=== PATIENT | female | born 1990 | race Two or more races ===

== ENCOUNTER 2023-07-25 17:19 | Emergency (ER) | payer OTHER, SELFPAY ==
[2023-07-25 17:35] VITALS: BP 123/90; PULSE 81; RESP 20; TEMP 36.9; O2SAT 97; BMI 29.2
--- NOTE | 2023-07-25 17:48 | ED.SKABFB1 ---
HPI - Skin/Abscess/Foreign Bdy General Chief complaint: Skin/Abscess/Foreign Body Stated complaint: RASH Time Seen by Provider: 07/25/23 17:34 Source: patient Mode of arrival: walk-in Limitations: no limitations History of Present Illness HPI narrative: 33-year-old female presents for rash. It's mostly on her right leg but to a lesser degree on the left leg and the lower abdomen. She's had it for a few weeks and finished a course of prednisone. She was also treated for scabies and flea bites but it didn't get better. it is continuous. No new products or new medications prior to the rash developing. Related Data Previous Rx's Medication Instructions Recorded hydroxyzine HCl 25 mg tablet 25 mg PO Q8H PRN itching #20 tabs 07/25/23 prednisone 10 mg tablet See Rx Instructions .Route 07/25/23 .COMPLEX #30 tabs Allergies Allergy/AdvReac Type Severity Reaction Status Date / Time No Known Drug Allergies Allergy Verified 07/25/23 17:35 Review of Systems ROS Narrative A ten point review of systems is negative except as noted above. Exam Narrative Exam Narrative: Nurses note and vital signs reviewed and patient is not hypoxic. General: The patient appears well and in no apparent distress. Patient is resting comfortably on cart. Skin: Warm, dry, no pallor noted. There is erythematous scattered rash present primarily on her right leg but to a lesser degree the left leg in the lower abdomen. No pustules or blisters are present. Head: Normocephalic, atraumatic Eye: Normal conjunctiva, no drainage Ears, Nose, Mouth, and Throat: oral mucosa is moist. Nares patent. Cardiovascular: Regular Rate and Rhythm Respiratory: Patient is in no distress, no accessory muscle use, lungs are clear to auscultation, no wheezing, rales or rhonchi Back: non-tender GI: soft and nontender Musculoskeletal: The patient has no evidence of calf tenderness, no pitting edema, symmetrical pulses noted bilaterally Neurological: A&O, normal speech Psychiatric: Cooperative Constitutional Vital Signs, click to edit/add: Last Vital Signs Temp 98.5 F 07/25/23 17:35 Pulse 81 07/25/23 17:35 Resp 20 07/25/23 17:35 BP 123/90 07/25/23 17:35 Pulse Ox 97 07/25/23 17:35 O2 Del Method Room Air 07/25/23 17:35 Course Vital Signs Vital signs: Vital Signs Temperature 98.5 F 07/25/23 17:35 Pulse Rate 81 07/25/23 17:35 Respiratory Rate 20 07/25/23 17:35 Blood Pressure 123/90 07/25/23 17:35 Pulse Oximetry 97 07/25/23 17:35 Oxygen Delivery Method Room Air 07/25/23 17:35 Temperature 98.5 F 07/25/23 17:35 Pulse Rate 81 07/25/23 17:35 Respiratory Rate 20 07/25/23 17:35 Blood Pressure 123/90 07/25/23 17:35 Pulse Oximetry 97 07/25/23 17:35 Oxygen Delivery Method Room Air 07/25/23 17:35 MDM - Skin/Abscess/Foreign Bdy MDM Narrative Medical decision making narrative: rashes of uncertain etiology and she is prescribed Solu-Medrol and prescribed Atarax. She was given IM Solu-Medrol. Treatment diagnosis and follow-up were discussed with the patient. Differential Diagnosis Differential diagnosis: Likely viral exanthem, urticaria, allergic reaction to drug, cellulitis, insect bites and contact dermatitis Discharge Plan Discharge Chief Complaint: Skin/Abscess/Foreign Body Clinical Impression: Rash Patient Disposition: Home, Self-Care Time of Disposition Decision: 17:46 Condition: Good Mode of Transportation: Private Vehicle Prescriptions / Home Meds: New prednisone 10 mg tablet See Rx Instructions .ROUTE .COMPLEX Qty: 30 0RF Rx Instructions: 4 by mouth daily for three days then 3 by mouth daily for three days then 2 by mouth daily for three days then 1 by mouth daily for three days hydroxyzine HCl 25 mg tablet 25 mg PO Q8H PRN (Reason: itching) Qty: 20 0RF Instructions: Acute Rash (ED) Stand Alone Forms: Portal Instructions Referrals: Physician,Non-Staff, MD [Primary Care Provider] - 1 week
[2023-07-25] MEDS: METHYLPREDNISOLONE SOD SUCC PF 125 MG/2 ML VIAL IM (17:50)
== END 2023-07-25 18:02 | disposition home or self-care (01) ==
PROVIDERS: Emergency Provider Emergency Medicine
DX: R21 Rash and other nonspecific skin eruption (principal)
CPT/HCPCS: 96372; 99284; J2930

== ENCOUNTER 2025-02-02 01:23 | Emergency (ER) | payer OTHER, SELFPAY ==
[2025-02-02 01:25] VITALS: BMI 25.7
--- NOTE | 2025-02-02 01:30 | ED_ITS ---
HPI HPI - Overdose General Chief Complaint: Overdose Stated Complaint: other Time Seen by Provider: 02/02/25 01:30 History of Present Illness HPI Narrative: cc - overdose Patient was found unresponsive outside of the [facility] in [place]. EMS was called to the scene but apparently no one claim to know this lady known offered any kind of story. She was just outside of the bar, according to EMS. They administered 3 doses of Narcan and were bagging her at 1 point. They said that the third dose caused her to resuscitate. Her blood sugar was 368. Despite having overdose and requiring Narcan for resuscitation, EMS told us that the patient wanted to go to [place] rather than [place]. It is not clear when this occurred in the process of resuscitating this patient's overdose, but they drove from [place] all the way to [place] to bring this patient in for evaluation. On arrival the patient not only refused to give any of her information she pulled out her IV and refused any treatment or interaction. We were eventually able to get her name, her address and phone number. She was able to contact her boyfriend through Facebook and we were able to make arrangements for her to come and get picked up. She vehemently denied using any drugs and said that she was a chronic alcoholic . She was awake alert and oriented x 3 with understanding of where she was and refused any additional intervention. I did not even get to examine her. Related Data Previous Rx's ?Medication ?Instructions ?Recorded hydroxyzine HCl 25 mg tablet 25 mg PO Q8H PRN itching #20 tabs 07/25/23 prednisone 10 mg tablet See Rx Instructions .Route 1 09/25/22 .COMPLEX #30 tabs Allergies Allergy/AdvReac Type Severity Reaction Status Date / Time No Known Drug Allergies Allergy Verified 07/25/23 17:35 MDM - Overdose MDM Narrative Medical decision making narrative: Patient was found unresponsive outside of the [facility] in [place]. EMS was called to the scene but apparently no one claim to know this lady known offered any kind of story. She was just outside of the bar, according to EMS. They administered 3 doses of Narcan and were bagging her at 1 point. They said that the third dose caused her to resuscitate. Her blood sugar was 368. Desp ite having overdose and requiring Narcan for resuscitation, EMS told us that the patient wanted to go to [place] rather than [place]. It is not clear when this occurred in the process of resuscitating this patient's overdose, but they drove from [place] all the way to [place] to bring this patient in for evaluation. On arrival the patient not only refused to give any of her information she pul led out her IV and refused any treatment or interaction. We were eventually able to get her name, her address and phone number. She was able to contact her boyfriend through Facebook and we were able to make arrangements for her to come and get picked up. She vehemently denied using any drugs and said that she was a chronic alcoholic . She was awake alert and oriented x 3 with understanding of where she was and refused any additional intervention. I did not even get to examine her. Discharge Plan Discharge Stand Alone Forms: Portal Instructions Chief Complaint: Overdose Clinical Impression: Refusal of care by patient Patient Disposition: Left Against Medical Advice Time of Disposition Decision: 01:32 Prescriptions / Home Meds: No Action prednisone 10 mg tablet See Rx Instructions .ROUTE .COMPLEX Qty: 30 0RF Rx Instructions: 4 by mouth daily for three days then 3 by mouth daily for three days then 2 by mouth daily for three days then 1 by mouth daily for three days hydroxyzine HCl 25 mg tablet 25 mg PO Q8H PRN (Reason: itching) Qty: 20 0RF Print Language: Iranian Instructions: Against Medical Advice (ED) Referrals: Physician,Non-Staff, MD [Primary Care Provider] - 1 week
--- OUTSIDE RECORDS SUMMARY | 2025-02-02 01:30 | XMS_ITS | CCD ---
Author Organization [facility] Care Team Providers Care Theater Teacher Name Role Phone LILI CEJA Referring Unavailable VENUS WRIGHT Attending Unavailable Unavailable Primary Care Provider Unavailbert e Unavailable Primary Care Provider LILI Lindsay Attending Unavailable LILI CEJA Referring Unavailable Medications Current Medications Medication Drug Class(es) Dates Sig (Normalized) Sig (Original) medical marijuana (4 sources) medical marijuan a Inhale. Active medical marijuan a Inhale. 0 Active metroNIDAZOLE 500 mg oral tablet (2 sources) Nitroimidazole Antimicrobial Start: 11-15-2024 End: 11-22-2024 take 1 tablet by mouth three times daily metroNIDAZOLE (FLAGYL) 500 mg tablet Take 1 tablet (500 mg total) by mouth 3 (three) times a day for 7 days. 21 tablet 11/15/2024 11/22/2024 Active Start: 09-06-2023 End: 09-13-2023 take 1 tablet by mouth in the morning, then take 1 tablet by mouth at bedtime metroNIDAZOLE (FlagyL) 500 mg tablet Indications: Bacterial vaginosis Take 1 tablet (500 mg total) by mouth in the morning and 1 tablet (500 mg total) before bedtime. Do all this for 7 days. 14 tablet 0 09/06/2023 09/13/2023 Active Problems Active Problems Problem Classification Problem Date Documented Date Episodic/Chronic Immunizations and screening for infectious disease (5 sources) Encounter for screening for infections with a predominantly sexual mode of transmission; Translations: [Patient encounter status] Onset: 09-05-2023 09-05-2023 Episodic Inflammatory diseases of female pelvic organs (4 sources) Bacterial vaginosis; Translations: [Acute vaginitis] Onset: 11-12-2024 09-06-2023 Episodic Other screening for suspected conditions (not mental disorders or infectious disease) (1 source) Encounter for screening for malignant neoplasm of vagina; Translations: [Encounter for screening for malignant neoplasm of vagina] Onset: 09-05-2023 Episodic Unclassified (1 source) Annual Exam Onset: 11-12-2024 Past or Other Problems Problem Classification Problem Date Documented Da te Episodic/Chronic Mood disorders (4 sources) Mood disorders Onset: 09-05-2023 Resolved: 11-12-2024 09-05-2023 Unclassified (4 sources) Onset: 09-05-2023 09-05-2023 Results Test Name Value Interpretation Reference Range Facil ity CHLAMYDIA/GC BY PCRon 2024 CHLAMYDIA/GC BY PCR SPECIMEN SOURCE CERVIX CHLAMYDIA DNA(PCR) Negative (qualifier value) Chlamydia trachomatis not detected by nucleic acid amplification. This does not exclude the possibility of infection because results are dependent on adequate specimen collection. GONORRHOEAE DNA(PCR) Negative (qualifier value) Neisseria gonorrhoeae not detected by nucleic acid amplification. This does not exclude the possibility of infection because results are dependent on adequate specimen collection. Normal [facility] Comment on above: Performed By: #### C GS #### [facility] ([id number]) [address] [place] [address], [address] [place] [address] VAGINITIS PANEL PCRon 2024 VAGINITIS PANEL PCR BACT. VAGINOSIS DNA Detected (qualifier value) Qualitative results are reported based on detection and quantitation of targeted organism markers which include: Lactobacillus spp. (L. crispatus and L. jensenii), Gardnerella vaginalis, Atopobium vaginae, Bacterial Vaginosis Associated Bacteria-2 (BVAB-2) and Megasphaera-1 SINDHU SPECIES DNA Not detected (qualifier value) Sindhu species not detected include: C. albicans, C. tropicalis, C. parapsilosis or C. dubliniensis SINDHU KRUSEI DNA Not detected (qualifier value) No Sindhu krusei detected SINDHU GLABRATA DNA Not detected (qualifier value) No Sindhu glabrata detected TRICHOMONAS VAG DNA Not detected (qualifier value) No Trichomonas vaginalis detected NOTE BD MAX Vaginal Panel has not been evaluated for patients under 18 years old. Results for these patients should be reviewed and assessed in accordance with clinical presentation to determine patient diagnosis. [facility] Comment on above: Performed By: #### V PPCR #### [facility] ([id number]) [address] [place] [address], [address] [place] [address] CHLAMYDIA/GC PCR, FLon 09-05 CHLAMYDIA/GC PCR, FL SPECIMEN SOURCE ThinPrep CHLAMYDIA DNA(PCR) Negative (qualifier value) Chlamydia trachomatis not detected by nucleic acid amplification. This does not exclude the possibility of infection because results are dependent on adequate specimen collection. GONORRHOEAE DNA(PCR) Negative (qualifier value) Neisseria gonorrhoeae not detected by nucleic acid amplification. This does not exclude the possibility of infection because results are dependent on adequate specimen collection. Normal [facility] Comment on above: Performed By: #### C GT #### [facility] ([id number]) [address] [place] [address], [place] [address] [facility] ([id number]) [address] [place] [address], [address] [place] [address] Cytologyon 09-05-2023 Cytology Normal [facility] Comment on above: Result Comment: [facility] [address] [place] [address] Gynecologic Cytology Consultation Patient Name:VENUS ALVES:1990 (Age: 33)Gender:FTaken:4Reported:09/12/2023hysician(s):Lili Ceja M.D. ([phone])Copy To: Rec. #:[id number]: #[id number] Final Cytologic Interpretation ThinPrep Pap Test (Cervical): Satisfactory for evaluation. A transformation zone component is present. NEGATIVE FOR INTRAEPITHELIAL LESION OR MALIGNANCY. wernerja/09/12/2023 [facility] [address] [place] [address], License number: [id number]. Electronically Signed Out By GALA Edouard(ASCP) Date of Last Menstrual Period: (None Given) Other Clinical Conditions: Z01.419 Clinical Molecular Geneticist exam wo/abn findings Z12.72 Screeing for malignant neoplasm of vagina Z11.3 Encntr screen for infections w sexl mode of transmiss Source of Specimen ThinPrep Pap Test (Cervical) Thin Prep Pap (INTERNAL COMBUSTION ENGINE ASSEMBLER) Fee Code(s): G0145 HIGH RISK HPV W/GENOon 09-05 HPV 31+33+35+39+45+51 +52+56+58+59+66+6 8 DNA DAYSI+probe Ql (Cvx) HPV SPECIMEN TYPE ThinPrep HPV 16 Negative (qualifier value) HPV 18 Negative (qualifier value) OTHER HIGH RISK HPV Negative (qualifier value) HPV types 31,33,35,39,45,52,56,5 8,59,66 and 68 DNA were undetectable. Normal [facility] Comment on above: Performed By: #### 7 1431-1 #### [facility] ([id number]) [address] [place] [address], [address] [place] [place], [place] [id number] [place] [address] LAB ([id number]) [address] [facility], [address] [place] [address] Vital Signs Date Time Vital Sign Value Performing Clinician Faci lity 11-12-2024 09:42-0400 Body height 162.6 cm Lili Ceja MD Work Phone: [facility] 11-12-2024 09:42-0400 Body mass index (BMI) [Ratio] 25.71 kg/m2 Lili Ceja MD Work Phone: [facility] 11-12-2024 09:42-0400 Body weight 67.95 kg Lili Ceja MD Work Phone: [facility] 11-12-2024 09:42-0400 Diastolic blood pressure 84 mm[Hg] Lili Ceja MD Work Phone: [facility] 11-12-2024 09:42-0400 Systolic blood pressure 132 mm[Hg] Lili Ceja MD Work Phone: [facility] 09-05-2023 13:59-0500 Body weight 80.56 kg Lili Ceja MD Work Phone: [facility] 09-05-2023 13:59-0500 Diastolic blood pressure 60 mm[Hg] Lili Ceja MD Work Phone: [facility] 09-05-2023 13:59-0500 Systolic blood pressure 104 mm[Hg] Lili Ceja MD Work Phone: [facility] Encounters Encounter Date Encounter Type Care Provider Facility Start: 11-15-2024 End: 11-15-2024 Orders Only Lili Ceja MD Work Phone: [facility] Start: 11-12-2024 End: 11-12-2024 ambulatory [facility] Start: 11-12-2024 End: 11-12-2024 Patient encounter status Lili Ceja MD Work Phone: [facility] Work Phone: Start: 11-12-2024 End: 11-12-2024 Periodic preventive med est patient 18-39 yrs Lili Ceja MD Work Phone: [facility] Comment on above: Encounter for gyneco logical examination without abnormal finding (Primary Dx); Screening for STD (sexually transmitted disease); Acute vaginitis Start: 11-12-2024 End: 11-12-2024 ambulatory [facility] Start: 11-12-2024 Encounter for gynecological examination (general) (routine) without abnormal findings [facility] Start: 09-25-2023 End: 09-25-2023 ambulatory VENUS WRIGHT Not Available Start: 09-06-2023 Telephone encounter Sofía martin APRN-CNM Work Phone: [facility] Start: 09-05-2023 End: 09-05-2023 Initial preventive medicine new pt age 18-39yrs Lili Ceja MD Work Phone: [facility] Comment on above: Encounter for gyneco logical examination without abnormal finding (Primary Dx); Smear, vaginal, as part of routine gynecological examination; Screening for STD (sexually transmitted disease) Start: 09-05-2023 End: 09-05-2023 Patient encounter status Lili Ceja MD Work Phone: [facility] Work Phone: Start: 09-05-2023 End: 09-05-2023 ambulatory [facility] Start: 09-05-2023 Encounter for gynecological examination (general) (routine) without abnormal findings [facility] Procedures Date Procedure Procedure Detail Performing Clinician Start: 11-12-2024 Adult depression scr eening assessment Lili Ceja MD Work Phone: Start: 09-05-2023 Adult depression scr eening assessment Lili Ceja MD Work Phone: Start: 09-05-2023 Microscopic observat ion [Identifier] in Cervix by Cyto stain Lili Ceja MD Work Phone: Start: 04-05-2012 Microscopic observat ion [Identifier] in Cervix by Cyto stain Lili Ceja MD Work Phone: Plan of Treatment Date Care Activity Detail Author Start: 09-05-2026 Screening for malign ant neoplasm of cervix Pap Smear [facility] Start: 05-15-2026 Tobacco Counseling Tobacco Counselin g [facility] Start: 11-12-2025 Adult BMI Screening Adult BMI Screen ing [facility] Start: 11-12-2025 Depression Screening Depression Scre ening [facility] Start: 11-12-2025 Tobacco Screening Tobacco Screening [facility] Start: 11-12-2024 End: 11-12-2025 Chlamydia/GC by PCR Bere Swab Chlamydia/GC by PCR Bere Swab Microbiology Routine Screening for STD (sexually transmitted disease) Expected: 11/12/2024 (Approximate), Expires: [facility]12[facility]25 [facility] Work Phone: Comment on above: Expected: 11/12/2024 (Approximate), Expires: 11/12/2025 Start: 11-12-2024 End: 11-12-2025 Vaginitis Panel PCR Vaginitis Panel PCR Microbiology Routine Acute vaginitis Expected: 11/12/2024 (Approximate), Expires: 11/12/2025 [facility] Comment on above: Expected: 11/12/2024 (Approximate), Expires: 11/12/2025 Start: 09-05-2024 Adult BMI Follow Up Plan Adult BMI F ollow Up Plan [facility] Start: 09-05-2024 Depression Screening Depression Scre ening [facility] Start: 09-05-2024 Tobacco Screening Tobacco Screening [facility] Start: 04-21-2024 Influenza vaccination Influenza Vacc ine [facility] Start: 04-21-2023 Influenza vaccination Influenza Vacc ine [facility] Start: 04-05-2015 Screening for malign ant neoplasm of cervix Pap Smear [facility] Start: 2009 DTaP,Tdap and Td Vaccines (1 - Tdap) DTaP,Tdap and Td Vaccines (1 - Tdap) [facility] Start: 2008 Adult BMI Screening Adult BMI Screen ing [facility] Start: 1990 Tobacco Counseling Tobacco Counselin g [facility] End: 09-05-2024 Chlamydia/GC by PCR ThinPrep fluid Chlamydia/GC by PCR ThinPrep fluid Microbiology Routine Screening for STD (sexually transmitted disease) 1 Occurrences starting 09/05/2023 until 09/05/2024 [facility] Comment on above: 1 Occurrences starti ng 09/05/2023 until 09/05/2024 End: 09-05-2024 Cytopathology procedure, preparation of smear, genital source Pap Smear Pathology and Cytology Routine Smear, vaginal, as part of routine gynecological examination 1 Occurrences starting 09/05/2023 until 09/05/2024 [facility] [employer] Work Phone: Comment on above: 1 Occurrences starti ng 09/05/2023 until 09/05/2024 End: 11-12-2025 Hepatitis panel, acute Hepatitis panel, acute Lab Routine Screening for STD (sexually transmitted disease) 1 Occurrences starting 11/12/2024 until 11/12/2025 [facility] Comment on above: 1 Occurrences starti ng 11/12/2024 until 11/12/2025 End: 09-05-2024 High risk HPV w/lore High risk HPV w/lore Lab Routine Screening for STD (sexually transmitted disease) 1 Occurrences starting 09/05/2023 until 09/05/2024 [facility] Comment on above: 1 Occurrences starti ng 09/05/2023 until 09/05/2024 End: 11-12-2025 HIV 1&2 AB/AG Screen (P24 AG) HIV 1&2 AB/AG Screen (P24 AG) Lab Routine Screening for STD (sexually transmitted disease) 1 Occurrences starting 11/12/2024 until 11/12/2025 [facility] Comment on above: 1 Occurrences starti ng 11/12/2024 until 11/12/2025 End: 11-12-2025 Syphilis Total(Unknown Syphilis Status) Syphilis Total(Unknown Syphilis Status) Lab Routine Screening for STD (sexually transmitted disease) 1 Occurrences starting 11/12/2024 until 11/12/2025 [facility] Comment on above: 1 Occurrences starti ng 11/12/2024 until 11/12/2025 End: 09-05-2024 Vaginitis Panel PCR Vaginitis Panel PCR Microbiology Routine Screening for STD (sexually transmitted disease) 1 Occurrences starting 09/05/2023 until 09/05/2024 [facility] Comment on above: 1 Occurrences starti ng 09/05/2023 until 09/05/2024 Vaginitis Panel PCR Vaginitis Pa luann PCR Microbiology Routine Screening for STD (sexually transmitted disease) 09/05/2023 8:53 PM EST [facility] Payers Date Payer Category Payer Medicaid O [facility] E MEDICAID [id number] 2023 Unknown [facility] [employer] [facility] [id number] 2023-Present [phone] [address] [address] [place] [address] [id number] 2023 Unknown [id number] 1990 Unknown [id number] 1990 Unknown [id number] 1990 Unknown [id number] 1990 Unknown [id number] Social History Date Type Detail Facility Start: 09-05-2023 End: 11-12-2024 Tobacco smoking status NHIS Occasional tobacco smoker [facility] History of tobacco use Cigarette Smoker P [facility] Start: 09-05-2023 End: 11-12-2024 Cigarettes smoked current (pack per day) - Reported 0.5 [facility] Start: 09-05-2023 End: 11-12-2024 Tobacco use and exposure Smokeless tobacco non-user [facility] Start: 09-05-2023 End: 11-12-2024 Alcohol intake Current drinker of alcohol (finding) [facility] Start: 09-05-2023 End: 11-12-2024 Tobacco use panel [facility] Adolescent depressio n screening assessment 14 [facility] Start: 09-05-2023 Alcohol Comment social [facility] Start: 1990 Sex Assigned At Not on file P [facility] Start: 2015 Sex Female (finding) [facility] Clinical Notes 09-05-2023 to 11-12-2024 Lili Ceja MD - 11/12/2024 9:30 AM EDTTelephone Encounter - Sofía Ferguson, BEEF SKINNER-CNM - 09/06/2023 4:58 PM ESTTelephone Encounter - Sofía Ferguson, BEEF SKINNER-CNM - 09/06/2023 4:58 PM EST Note Date & Type Note Facility 11-12-2024 History of Presen t illness Narrative Annual Well Woman Visit 11/12/2024 Subjective Venus Alves is a pleasant 34 y.o. 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 Periods are irregular, lasting several days. Dysmenorrhea: moderate, occurring throughout menses. Cyclic symptoms include anxiety and diarrhea. Has intermenstrual bleeding, spotting, or abnormal discharge. no pelvic pain. Patient desires STD testing today. Complaints today: lump on inner thigh by vagina. Hard ball started in her labia and moves around. The ball is currently in her upper inner thigh but will sometimes disappear. She reports it is a little painful to palpate but much better today. No fever, chills, nausea, vomiting, diarrhea, constipation, or abdominal pain. Relationship status: in a relationship The patient reports that there is not domestic violence in her life. Sexually active: Yes Contraception: no method Sexual concerns: has some pain with intercourse Patient works: unemployed smoker (some days x 22 yrs) IF Yes , motivated to quit YES Children NO Current contraception: none History of abnormal Pap smear: no Last pap: 09/05/23- Neg, Neg HPV Regular self breast exam: yes Last mammogram: n/a Family history of breast cancer: no Family history of uterine or ovarian cancer: no Family history of pancreatic or prostate cancer: no Family history of colon cancer: no HPV vaccinated: yes Flu shot this flu season: no PHQ9 depression screenin LMP OB History No obstetric history on file. The following portions of the patient's history were reviewed and updated as appropriate: allergies, current medications, past family history, past medical history, past social history, past surgical history and problem list. MEDICAL HX Past Medical History: Diagnosis Date Anxiety Chronic bronchitis (CMS-HCC) OCD (obsessive compulsive disorder) Personality disorder, unspecified (CMS-HCC) SURGICAL HX History reviewed. No pertinent surgical history. FAMILY HX Family History Problem Relation Age of Onset Arthritis Mother Asthma Mother Emphysema Mother Osteoporosis Mother MEDS Current Outpatient Medications Medication Sig Dispense Refill medical marijuana Inhale. No current facility-administered medications for this visit. ALLERGIES No Known Allergies Review of Systems Review of Systems Objective BP 132/84 Ht 162.6 cm (5' 4 ) Wt 67.9 kg (149 lb 12.8 oz) LMP (LMP Unknown) BMI 25.71 kg/m Physical Exam Physical Exam GEN AAOX3, NAD HEENT UNREMARKABLE HEART RRR LUNGS CTAB BREASTS NO MASSES, SKIN CHANGES OR LAD, NO NIPPLE DC ABD BENIGN, OBESE, NTND PELVIS: EG APPROP FOR AGE, NO LESIONS VAGINA APPROP FOR AGE, NO LESIONS BIMANUAL NO MASSES OR TENDERNESS RECTAL DEFERRED EXTREM NO CCE, NO CALF TENDERNESS Assessment/Plan: Venus was seen today for annual exam. Diagnoses and all orders for this visit: Encounter for gynecological examination without abnormal finding Screening for STD (sexually transmitted disease) - Chlamydia/GC by PCR Bere Swab; Future Acute vaginitis - Vaginitis Panel PCR; Future BMI is in the acceptable range. Breast self exam technique reviewed and patient encouraged to perform self-exam monthly. Discussed healthy lifestyle modifications. Educational material distributed. Follow up in 1 year for annual barber shop operator exam. Follow up as needed. Next pap due 2 years per ASCCP guidelines. Discussed taking a multivitamin. Discussed Calcium and Vitamin D for prevention of osteoporosis. Discussed recommendations for HPV vaccine between 9-45 yo. Can be received at [employer] or the [employer]. Discussed need for yearly mammogram after 40 yo. Discussed colon cancer screening recommendations to begin at 45 yo, patient to discuss with PCP. All questions answered. Recommend the patient return to the office when the bump in her inner thigh is enlarged to be better assessed. Recommend applying a warm compress to the area and epsom salt sit baths. WANTS STD SCREENING CULTURES DONE Patient is agreeable for blood work. MD ALFREDO MURGUIA CMA Emma Leis 11/12/24 1006 documented in this encounter [employer] 09-06-2023 Miscellaneous Notes Formattin g of this note might be different from the original. Call to pt. And advised that vaginitis was negative for everything was negative except for BV. GC/CT negative.Pt. reports she cleanses internally w/water and reports odor and discharge. Rx. For metronidazole sent to pharmacy. Allergies and pharmacy verified. Discussed w/pt. How to take and avoidance of alcohol. Discussed vaginal hygiene and not cleansing internally. Pt. Verbalized understanding. documented in this encounter [facility] 09-06-2023 Telephone encount er Note Call to pt. And advised that vaginitis was negative for everything was negative except for BV. GC/CT negative.Pt. reports she cleanses internally w/water and reports odor and discharge. Rx. For metronidazole sent to pharmacy. Allergies and pharmacy verified. Discussed w/pt. How to take and avoidance of alcohol. Discussed vaginal hygiene and not cleansing internally. Pt. Verbalized understanding. [facility] 09-05-2023 History of Presen t illness Narrative Annual Well Woman Visit 09/05/2023 Subjective Venus Alves is a 33 y.o. 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 Periods are irregular, lasting 6 days. Dysmenorrhea:mild, occurring premenstrually and first 1-2 days of flow. Cyclic symptoms include anxiety, bloating, breast tenderness, headache, moodiness, pelvic pain, and weight gain. no intermenstrual bleeding, spotting, or abnormal discharge. no pelvic pain. Patient desires STD testing today. Complaints today: none Relationship status: not in a relationship The patient reports that there is not domestic violence in her life. 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 The following portions of the patient's history were reviewed and updated as appropriate: allergies, current medications, past family history, past medical history, past social history, past surgical history and problem list. MEDICAL HX Past Medical History: Diagnosis Date Anxiety Chronic bronchitis ([facility]-HCC) OCD (obsessive compulsive disorder) Personality disorder, unspecified ([facility]-HCC) SURGICAL HX History reviewed. No pertinent surgical history. FAMILY HX Family History Problem Relation Age of Onset Arthritis Mother Asthma Mother Emphysema Mother Osteoporosis Mother MEDS Current Outpatient Medications Medication Sig Dispense Refill medical marijuana Inhale. No current facility-administered medications for this visit. ALLERGIES No Known Allergies Review of Systems Review of Systems Objective Wt 80.6 kg (177 lb 9.6 oz) LMP 08/15/2023 (Approximate) Physical Exam BP 104/60 Wt 80.6 kg (177 lb 9.6 oz) LMP 08/15/2023 (Approximate) Physical Exam GEN AAOX3, NAD HEENT UNREMARKABLE HEART RRR LUNGS CTAB BREASTS NO MASSES, SKIN CHANGES OR LAD, NO NIPPLE DC ABD BENIGN, OBESE, NTND PELVIS: EG APPROP FOR AGE, NO LESIONS VAGINA APPROP FOR AGE, NO LESIONS BIMANUAL NO MASSES OR TENDERNESS RECTAL DEFERRED EXTREM NO CCE, NO CALF TENDERNESS Assessment/Plan: ANNUAL [employer] ALSO WITH SHELTER HO IRREG VAG BLEEDING ALSO REPORTS HO ELEV PROLACTIN REMOTE RTO FOR EVALUATION BMI is above average; Discussed eating tips for weight loss and and exercise steps. Breast self exam technique reviewed and patient encouraged to perform self-exam monthly. Discussed healthy lifestyle modifications. Educational material distributed. Follow up in 1 year for annual barber shop operator exam. Follow up as needed. Next pap due per ASCCP guidelines. Discussed taking a multivitamin. Discussed Calcium and Vitamin D for prevention of osteoporosis. Discussed recommendations for HPV vaccine between 9-45 yo. Can be received at [employer] or the [employer] department. Discussed need for yearly mammogram after 40 yo. Discussed colon cancer screening recommendations to begin at 45 yo, patient to discuss with PCP. All questions answered. MD Cori MURGUIA RN documented in this encounter [facility] 09-05-2023 Miscellaneous Notes Addended by: LANCE GARVIN on: 09/05/2023 03:27 PM Modules accepted: Orders documented in this encounter [facility] 09-05-2023 Note Addended by: LANCE GARVIN on: 09/05/2023 03:27 PM Modules accepted: Orders [facility] Evaluation note Diagnosis Encounter for gynecological examination without abnormal finding- Primary Smear, vaginal, as part of routine gynecological examination Special screening for malignant neoplasms, vagina Screening for STD (sexually transmitted disease) documented in [facility] encounter [facility] Diagnosis Bacterial vaginosis- Primary Unspecified vaginitis and vulvovaginitis documented in this encounter [facility]* Diagnosis Encounter for gynecological examination without abnormal finding- Primary Screening for STD (sexually transmitted disease) Acute vaginitis Unspecified vaginitis and vulvovaginitis documented in this encounter [facility]ructionsNot on filedocumented in this encounter [facility] filedocumented in this [facility] System[facility]ructionsNot on filedocumented in this encounter [facility] SystemInstructionsNot on filedocumented in this encounter [facility] Summary Purpose Family History No Family History Records FoundNo Family History Records FoundNo Family History Records FoundNo Family History Records Found Advance Directives No Advanced Directives Records FoundNo Advanced Directives Records FoundNo Advanced Directives Records FoundNo Advanced Directives Records Found Additional Source Comments INFORMATION SOURCE (unrecogn ized section and content) DATE CREATED AUTHOR 09/14/2023 [facility] DATE CREATED AUTHOR AUTHOR'S ORGANIZ ATION 09/26/2023 [facility] EPIC DATE CREATED AUTHOR AUTHOR'S ORGANIZ ATION 11/13/2024 [facility] DATE CREATED AUTHOR AUTHOR'S ORGANIZ ATION 11/13/2024 [facility] Reason for Visit (unrecogniz ed section and content) Reason Comments Annual Exam FOR RECORDS PERTAINING TO PATIENTS WHO ARE OR HAVE BEEN ENROLLED IN A CHEMICAL DEPENDENCY/SUBSTANCEABUSE PROGRAM, SOME INFORMATION MAY BE OMITTED. This clinical summary was aggregated from multiple sources. Caution should be exercised in using it in the provision of clinical care. This summary normalizes information from multiple sources, and as a consequence, information in this document may materially change the coding, format and clinical context of patient data. In addition, data may be omitted in some cases. CLINICAL DECISIONS SHOULD BE BASED ON THE PRIMARY CLINICAL RECORDS. [facility]. provides no warranty or guarantee of the accuracy or completeness of information in this document.
== END 2025-02-02 01:50 | disposition left against medical advice (07) ==
PROVIDERS: Emergency Provider Emergency Medicine
DX: Z53.29 Procedure and treatment not carried out because of patient's decision for other reasons (principal)
CPT/HCPCS: 99281